=== PATIENT | male | born 1980 | race Caucasian/White ===

== ENCOUNTER 2020-03-10 13:01 | Outpatient (CLI) | payer BC ==
--- NOTE | 2020-03-10 13:38 | ULT ---
EXAM: US Testicular W Doppler PROVIDED CLINICAL HISTORY: Right testicular pain and swelling COMPARISON: None FINDINGS: The right testicle measures about 4.3 x 3.3 x 2.3 cm, and demonstrates a normal grayscale sonographic appearance. The right epididymis appears enlarged and hypervascular. Within the epididymal tail is a focal area of altered echogenicity having a circumscribed hypoechoic rim and demonstrating no inter nal vascularity, measuring approximately 1 cm. The left testicle measures about 4.5 x 2.7 x 2.4 cm and demonstrates a normal grayscale sonographic a ppearance. There is a small simple appearing left epididymal head cyst. No significant hydrocele or varicocele is evident. Color Doppler and spectral analysis of the testicu lar waveforms demonstrates normal flow bilaterally. IMPRESSION: 1. Enlarged and hypervascular right epididymis, compatible with epididymitis. 2. 1 cm mass within the right epididymal tail, which could reflect epididymal abscess or neoplasm suc h as adenomatoid tumor.
== END 2020-03-10 13:02 | disposition home or self-care (01) ==
LOC: BICULT 13:01
PROVIDERS: ATTEND Family Medicine Sports Medicine
DX: N50.89 Other specified disorders of the male genital organs (principal)
CPT/HCPCS: 76870; 93976